=== PATIENT | female | born 1965 | race Caucasian/White ===

== ENCOUNTER → 2018-04-01 | Day surgery (SDC) | payer BC ==
[~2018-04-01] MED LIST: Lactated Ringers 1,000 ML IV SCH; Lidocaine 1% 20 ML MDV ONE
--- NOTE | 2018-04-01 15:13 | OR ---
DATE OF OPERATION: 04/01/2018 PREOPERATIVE DIAGNOSIS: GANGLION CYST, LEFT THUMB INTERPHALANGEAL JOINT. POSTOPERATIVE DIAGNOSIS: GANGLION CYST, LEFT THUMB INTERPHALANGEAL JOINT. SURGEON: Apollo Wallace MD PROCEDURE: EXCISION OF GANGLION CYST, LEFT THUMB. ANESTHESIA: Local. SPECIMEN: None. INDICATION FOR PROCEDURE: This 52-year-old female has a relatively large ganglion cyst of the interphalangeal joint on the left thumb. PROCEDURE: AFTER ADEQUATE PREPARATION, LOCAL ANESTHESIA WAS USED TO BLOCK THE THUMB, BOTH MEDIALLY AND LATERALLY. SOME EXTRA INFILTRATIVE ANESTHESIA WAS USED OVER THE CYST AREA, AND A SKIN INCISION WAS MADE. THIS WAS ELEVATED AROUND THE CYST, WHICH WAS THEN TAKEN OUT, WHICH APPEARED TO BE COMING ACTUALLY FROM THE TENDON SHEATH, BUT I WAS NOT ABLE TO FOLLOW IT DOWN INTO THE JOINT. WHAT I COULD TAKE OUT OF THE SHEATH WAS TAKEN OUT OF. HEMOSTASIS WAS CONTROLLED. THE WOUND WAS CLOSED USING A RUNNING 5-0 NYLON WHICH WILL REMAIN FOR 2 WEEKS, AND I WILL FOLLOW HER IN THE CLINIC IN 1 MONTH IF NECESSARY. CÉSAR/ELKIN /[id number]
== END ==
LOC: CC.SDS 12:01
PROVIDERS: ATTEND Surgery
DX: M67.442 Ganglion, left hand (principal); F41.9 Anxiety disorder, unspecified; F32.9 Major depressive disorder, single episode, unspecified; Z88.2 Allergy status to sulfonamides; Z79.899 Other long term (current) drug therapy